=== PATIENT | male | born 1990 | race Caucasian/White ===

== ENCOUNTER 2016-10-06 21:13 | Emergency (ER) | payer OTHER ==
[2016-10-06 21:25] VITALS: O2SAT 100
[2016-10-06] MEDS ORDERED: solu-MEDROL 125 MG IM ONE (21:30)
--- NOTE | 2016-10-06 21:38 | ERPHSYRPT ---
- History of Present Illness Time Seen by Provider: 10/06/16 21:28 Source: patient Exam Limitations: no limitations Patient Subjective Stated Complaint: PT STATES AROUND 1999 HE WAS BIT BY AN INSECT. STATES HE TOOK A SHOWER IMMEDIATELY AFTER AND NOTICED A RED, RAISED RASH ON HIS CHEST, ABDOMEN, AND GROIN. Triage Nursing Assessment: PT IS A0X3, AMBULATORY TO COT WITH NO DIFFICULTY, RESPS ARE EASY AND NONLABORED,LUNG SOUNDS ARE CLEAR THROUGHOUT, SKIN IS PWD, RED , RASIED DIFFUSE RASH NOTED TO THE CHEST AND BACK. PULSES ARE STRONG AND EQUAL. PT DENIES SHORTNESS OF BREATH. Physician History: 25-year-old white male is complaining of generalized erythematous rash since approximately 8:00 this evening. According to patient he felt like he was bit by something while out in the yard he has a generalized erythematous rash on his trunk he has no shortness of breath. He has a small erythematous area on his left infraclavicular area . He did take Benadryl 50 mg prior to arrival. Past medical history, patient denies. Past surgical history includes fracture skull with hematoma and drain tube, left wrist fracture, right hand fracture, heart murmur Social history patient denies tobacco alcohol or illicit drug use Timing/Duration: today (just prior to arrival) Severity: moderate Modifying Factors: Improves With: nothing Associated Symptoms: rash (generalized pruritic rash on trunk), No nausea, No vomiting, No abdominal pain, No shortness of breath, No heartburn, No diaphoresis, No cough, No chills, No chest pain, No fever, No headaches, No loss of appetite, No malaise, No syncope, No seizure, No weakness Allergies/Adverse Reactions: UNOBTAINABLE Allergy (Unverified 07/21/13 17:29) Home Medications: Armodafinil [Nuvigil] 150 mg PO HS 07/21/13 [History] Hx Tetanus, Diphtheria Vaccination/Date Given: Yes Hx Influenza Vaccination/Date Given: No Hx Pneumococcal Vaccination/Date Given: No Immunizations Up to Date: Yes - Review of Systems Constitutional: No Fever, No Chills Eyes: No Symptoms Ears, Nose, & Throat: No Symptoms Cardiac: No Chest Pain, No Edema, No Syncope Abdominal/Gastrointestinal: No Abdominal Pain, No Nausea, No Vomiting, No Diarrhea Genitourinary Symptoms: No Dysuria Musculoskeletal: No Back Pain, No Neck Pain Skin: Rash (erythematous rash on trunk small bite wound left infraclavicular area) Neurological: No Dizziness, No Focal Weakness, No Sensory Changes Psychological: No Symptoms Endocrine: No Symptoms All Other Systems: Reviewed and Negative - Past Medical History Pertinent Past Medical History: Yes Neurological History: Seizures Cardiac History: Other Musculoskeletal History: Fractures Other Medical History: SKULL FRACTURE, WRIST FRACTURE, HEART MURMUR - Past Surgical History Past Surgical History: Yes Neuro Surgical History: Other Other Surgical History: fractured skull--hematoma (drain tube)--2009. lt wrist- -fx. rt hand fx - Social History Smoking Status: Never smoker Exposure to second hand smoke: No Drug Use: none Patient Lives Alone: No - Nursing Vital Signs Nursing Vital Signs: Initial Vital Signs Temperature 97.8 F Pulse Rate 56 Respiratory Rate 18 Blood Pressure [Right Arm] 126/84 Pain Intensity 0 - Physical Exam General Appearance: no apparent distress, alert Eye Exam: PERRL/EOMI, eyes nml inspection Ears, Nose, Throat Exam: normal ENT inspection, TMs normal, pharynx normal, moist mucous membranes Neck Exam: normal inspection, non-tender, supple, full range of motion Respiratory Exam: normal breath sounds, lungs clear, No respiratory distress Cardiovascular Exam: regular rate/rhythm, normal heart sounds, normal peripheral pulses Gastrointestinal/Abdomen Exam: soft, normal bowel sounds, No tenderness, No mass Back Exam: normal inspection, normal range of motion, No CVA tenderness, No vertebral tenderness Extremity Exam: normal inspection, normal range of motion, pelvis stable Neurologic Exam: alert, oriented x 3, cooperative, normal mood/affect, nml cerebellar function, nml station & gait, sensation nml, No motor deficits Skin Exam: other (patient with approximately 2 mm area left infraclavicular area which is erythematous erythematous rash on patient's trunk flat) Lymphatic Exam: No adenopathy SpO2 Interpretation: normal (100%) SpO2: 100 Oxygen Delivery: Room Air - Course Nursing assessment & vital signs reviewed: Yes Ordered Tests: Medication Summary Discontinued Medications Generic Name Dose Route Start Last Admin Trade Name Freq PRN Reason Stop Dose Admin Methylprednisolone Sodium Succinate 125 mg 10/06/16 21:30 10/06/16 21:46 Solu-Medrol 125 Mg IM 10/06/16 21:31 125 mg STAT ONE Administration Methylprednisolone Sodium Succinate Confirm 10/06/16 21:43 Solu-Medrol 125 Mg Administered 10/06/16 21:44 Dose 125 mg .ROUTE .STK-MED ONE - Progress Progress: improved Progress Note: 10/06/16 21:36 25-year-old white male with unknown insect bite left infraclavicular area patient with the mild erythematous rash on trunk which is puritic. Patient with no problems breathing airway is clear patient has already taken Benadryl orally 50 mg. Will give patient Solu-Medrol 125 mg IM. 10/06/16 21:54 Patient improving rash is clearing. Will plan discharge with Benadryl 50 mg orally every 6 hours., Tapering dose of prednisone. 10/06/16 22:11 Patient continues to improve in no acute distress at this time will discharge. - Departure Time of Disposition: 22:11 Departure Disposition: Home Clinical Impression: Insect bite Qualifiers: Encounter type: initial encounter Qualified Code(s): W57.XXXA - Bitten or stung by nonvenomous insect and other nonvenomous arthropods, initial encounter Allergic reaction Qualifiers: Encounter type: initial encounter Qualified Code(s): T78.40XA - Allergy, unspecified, initial encounter Condition: Fair Critical Care Time: No Referrals: RHIANNA MARES [Primary Care Provider] - Instructions: Insect Bites and Stings Additional Instructions: Return home. Plenty of fluids. Benadryl 50 mg orally every 6 hours as needed for 2-3 days. Tapering dose of prednisone as directed. Follow-up with your family doctor or return if problems. Return for acute distress or for severe symptoms.
[2016-10-06] MEDS ORDERED: solu-MEDROL 125 MG ONE (21:43)
[2016-10-06 22:16] VITALS: BP 110/78; PULSE 54
== END 2016-10-06 22:16 | disposition home or self-care (01) ==
LOC: ED 21:13
DX: S20.369A Insect bite (nonvenomous) of unspecified front wall of thorax, initial encounter (principal); S30.861A Insect bite (nonvenomous) of abdominal wall, initial encounter; T78.40XA Allergy, unspecified, initial encounter; W57.XXXA Bitten or stung by nonvenomous insect and other nonvenomous arthropods, initial encounter
CPT/HCPCS: 96372; 99284; J2930